=== PATIENT | male | born 1995 | race Two or more races ===

== ENCOUNTER 2024-01-11 10:53 | Emergency (ER) | payer MEDICAID, OTHER ==
[~2024-01-11] VITALS: Ht 188 cm; Wt 88.3 kg
[2024-01-11] MEDS ORDERED: KETO2CRE4 TOP (11:20)
[2024-01-11] MEDS ORDERED: CEPH500C PO (11:20)
[2024-01-11 11:24] VITALS: BP 153/82; PULSE 69; RESP 16; TEMP 98.1; O2SAT 100
== END 2024-01-11 11:28 | disposition home or self-care (01) ==
LOC: ER 10:53
DX: B35.4 Tinea corporis (principal); L08.89 Other specified local infections of the skin and subcutaneous tissue; Z79.899 Other long term (current) drug therapy